=== PATIENT | female | born 1975 | race Two or more races ===

== ENCOUNTER 2025-01-23 10:40 | Emergency (ER) | payer BC, SELFPAY ==
[2025-01-23 10:41] VITALS: BMI 37.4
[2025-01-23 11:00] VITALS: BP 115/74; PULSE 95; RESP 20; TEMP 37.8; O2SAT 95
--- NOTE | 2025-01-23 11:04 | XR_ITS ---
Examination: PA lateral chest 2 views TECHNIQUE: Upright PA lateral chest 2 views Exam date and time: January 23, 2025 1112 hours INDICATIONS: Coughing chest pain beginning 3 days ago. FINDINGS: Diffuse left lung pneumonia No pneumonia right base Normal heart size IMPRESSION: Significant diffuse left lung pneumonia
--- NOTE | 2025-01-23 11:49 | EDNOTE_ITS ---
<Statement entered by Sherron Patton MD - 01/23/25 17:55> As co-signing physician, I was present and available for consult prn. I concur with the plan and care as documented by the midlevel provider. Upper Respiratory Inf. RME/HPI General Chief Complaint: Flu Like Symptoms Stated Complaint: COUGH, SOB, CHEST PAIN SINCE X4D Time Seen by Provider: 01/23/25 10:43 Arrival date/time: 01/23/25 10:40 49-year-old female presents emergency dept today complains of cough, congestion and bodyaches ongoing for last 4 days patient was seen by PCP they gave her promethazine ibuprofen per reports she still has cough that has not improved Limitations: no limitations Related Data Previous Rx's ?Medication ?Instructions ?Recorded levofloxacin 750 mg tablet 750 mg PO Q24H 5 days #5 ta bs 01/23/25 Allergies Allergy/AdvReac Type Severity Reaction Status Date / Time No Known Allergies Allergy Verified 01/23/25 10:44 Review of Systems Review of Systems Systems Reviewed: All systems reviewed, normal except as documented Constitutional Constitutional: Reports system reviewed and no additional complaints, except as documented, Denies fever(s) and Denies headache(s) Eyes Eyes: Reports system reviewed and no additional complaints, except as documented and Denies blurry vision ENT Ears, Nose, Mouth, and Throat: Reports system reviewed and no additional complaints, except as documented, Denies headache(s), Denies nasal congestion and Denies nasal discharge Cardiovascular Cardiovascular: Reports system reviewed and no additional complaints, except as documented, Denies chest pain and Denies dyspnea Respiratory Respiratory: Reports system reviewed and no additional complaints, except as documented, Denies chest congestion, Denies cough and Denies dyspnea Gastrointestinal Gastrointestinal: Reports system reviewed and no additional complaints, except as documented and Denies abdominal pain Integumentary/Breasts Skin/Breast: Reports system reviewed and no additional complaints, except as documented and Denies rash Neurologic Neurologic: Reports system reviewed and no additional complaints, except as documented, Reports as per HPI and Denies headache(s) Past Medical History Past Medical History NEUROLOGIC: Positive Neurological Disorders and Calel's Palsy; Negative Seizures CARDIAC: Negative Cardiac Disorders, Congestive Heart Failure, Edema, Cellulitis or Varicose Veins RESPIRATORY: Negative Chronic Obstructive Pulmonary Disease (COPD), Pneumonia, Tuberculosis or Sleep Apnea GASTROINTESTINAL: Positive Gastrointestinal Disorders, Hepatitis, Gastroesophageal Reflux Disease and Obesity; Negative Pancreatitis or Gall Bladder Disease GENITOURINARY: Negative Genitourinary Disorders or Renal Disease REPRODUCTIVE: Positive Previous Pregnancies MUSCULOSKELETAL: Positive Musculoskeletal Disorders; Negative Arthritis, Gout, Scoliosis, Fibromyalgia or Fractures ENDOCRINE: Positive Endocrine Disorders; Negative Diabetes Mellitus Type 1 or Diabetes Mellitus Type 2 HEMATOLOGIC: Positive Blood Disorders and Anemia OTHER HISTORY: Positive Chicken Pox; Negative Hospitalization, Autoimmune Disease, Shingles, Falls, Blood Transfusions, Anesthesia Reactions, Chemotherapy, Radiation Therapy, MRSA, Measles, Mumps or Cancer Family History FAMILY HISTORY: Positive Family Cardiac Disorders; Negative Family Psychiatric Problems, Family Respiratory Disorders, Family Gastrointestinal Problems, Family Cancer, Family Surgery or Family Anesthesia Reaction Surgical History SURGICAL: Positive Section; Negative Cardiac Surgery or Pacemaker Social History SMOKING STATUS: Never smoker ED Exam General Limitations: Present no limitations General appearance: Present alert and in no apparent distress Head Head exam: Present atraumatic Eye Eye exam: Present normal appearance, PERRL and EOMI; Absent conjunctival injection ENT ENT exam: Present normal exam, normal oropharynx and mucous membranes moist Neck Neck exam: Present normal inspection, full ROM and trachea midline Chest Chest inspection: Present normal inspection and symmetric chest wall rise Respiratory Respiratory exam: Present normal lung sounds bilaterally Cardiovascular Cardiovascular exam: Present regular rate, normal rhythm and normal heart sounds Abdominal Exam Abdominal exam: Present soft and normal bowel sounds; Absent distention, tenderness, guarding, rebound or rigidity Extremities Exam Extremities exam: Present normal inspection and full ROM Back Exam Back exam: Present normal inspection and full ROM Neurological Exam Neurological exam: Present alert, oriented X3, CN II-XII intact, normal gait and reflexes normal; Absent motor sensory deficit Psychiatric Psychiatric exam: Present normal affect and normal mood Skin Skin exam: Present warm, dry, intact and normal color Course Quality Measures none Orders Category Date Time Status Bedside Influenza A&B Antigen Test NOW Care 01/23/25 11:04 Completed XR chest 2V Stat Exams 01/23/25 11:04 Completed Lidocaine 1% 20 ml [Xylocaine 1% 20 ML] Med 01/23/25 11:46 Discontinued 2.1 ml INFL X1 ONE cefTRIAXone [Rocephin] Med 01/23/25 11:46 Discontinued 1,000 mg IM X1 ONE Vital Signs Vital signs: Vital Signs Temperature 100.1 F 01/23/25 11:00 Pulse Rate 95 01/23/25 11:00 Respiratory Rate 20 01/23/25 11:00 Blood Pressure 115/74 01/23/25 11:00 Pulse Oximetry (%) 95 01/23/25 11:00 Oxygen Delivery Method Room Air 01/23/25 11:00 O2 saturation 95% room air within limits Upper Respiratory Infection MDM Narrative MDM Narrative:: 49-year-old female presents emergency dept today complains of cough, congestion and bodyaches ongoing for last 4 days patient was seen by PCP they gave her promethazine ibuprofen per reports she still has cough that has not improved On exam patient well-appearing patient does not appear ill or toxic in no acute distress On exam patient has no difficulty breathing no tachypnea or dyspnea Patient given Rocephin discharged with antibiotics Patient discharged home in no distress to follow-up with primary care doctor in the next 24 to 48 hours and for any worsening symptoms to return to the ER immediately Patient data External records reviewed:: [facility] previous records Clinical information provided by:: patient Social determinants that could affect healthcare access:: none Patient has the following chronic illnesses:: none How is presenting disease/condition affected by chronic disease/condition?: no chronic disease Evaluation data The following diagnostics were reviewed and interpreted by me:: lab results and radiology exam(s) Lab and/or radiology exams considered but not ordered:: labs and radiology Interpretation Summary: Read by me Medications / Prescriptions Medications or Prescriptions considered but not ordered:: Given Medication administrations:: Medication Administration History Discontinued Medications Ceftriaxone Sodium (Ceftriaxone Sod Inj 1,000 Mg Vial) 1,000 mg IM X1 ONE Stop: 01/23/25 11:47 Last Admin: 01/23/25 11:55 Dose: 1,000 mg Documented By: DB Lidocaine HCl (Lidocaine Hcl 1% 20 Ml Vial) 2.1 ml INFL X1 ONE Stop: 01/23/25 11:47 Last Admin: 01/23/25 11:55 Dose: 2.1 ml Documented By: MARSHALL Comments: MED GIVEN WITH CEFTRIAXONE Given Consultations Consultation(s) initiated? (list below): No Diagnosis Upper Respiratory Differential Diagnosis: upper respiratory infection, otitis media, sinusitis, viral infection and bronchitis Most likely diagnosis given after review of the tests above:: URI Admission Indicated Admission indicated?: not indicated Admission Request Was there a request for admission?: No Disposition Plan Disposition Plan: Discharge Discharge Attestation Discharge Attestation: The patient and all family members were given an opportunity to ask questions and understood the discharge instructions. Discharge instructions specifically effects, indications for sooner follow up or return to the emergency department, and the expected course of current diagnosis. Patient condition: Stable Discharge Plan Plan Patient Disposition: HOME (Self Care) Disposition Comment: Stable Prescriptions/Referrals Prescriptions/Med Rec: New levofloxacin 750 mg tablet 750 mg PO Q24H 5 Days Qty: 5 0RF Referrals: Felipe Judge MD [Primary Care Provider] - In 1 week Problem List Clinical Impression: Pneumonia Patient/Caregiver Discharge Instructions Education Materials: ED Pneumonia (Adult) Additional Instructions: Please follow up with your primary care doctor in the next 24-48hrs for any worsening symptoms return here immediately Print Language: Malay Stand Alone Forms: Mohini Award Info., Work/School Release, Patient Portal Info Letter PA/HOUSING COUNSELOR Supervising Physician PA/GLENN Supervising Physician: Dr. PATTON
[2025-01-23] MEDS: LIDOCAINE HCL 1% 20 ML VIAL 2.1 ML INFL (11:55)
[2025-01-23] MEDS: cefTRIAXone SOD INJ 1,000 MG VIAL 1000 MG IM (11:55)
== END 2025-01-23 12:05 | disposition home or self-care (01) ==
PROVIDERS: Emergency Provider Emergency Medicine; PCP Family Medicine
DX: J18.9 Pneumonia, unspecified organism (principal)
CPT/HCPCS: 71046; 87400; 96372; 99283; J0696; J3490